=== PATIENT | male | born 1975 | race American Indian/Alaskan Native ===

== ENCOUNTER 2016-09-03 09:41 | Outpatient (CLI) | payer MEDICAID ==
--- NOTE | 2016-09-03 10:39 | Ultrasound Report ---
ULTRASOUND RENAL INDICATION: Microhematuria. COMPARISON: None similar at this institution. FINDINGS: Renal sonography suggests top normal renal cortical echogenicity, not as evident on the right due to imaged hepatic possible echogenic coarsening. Grossly preserved renal contours. No hydronephrosis. Few tiny non-shadowing nonspecific echogenicities bilaterally. RIGHT KIDNEY measures 11.1 x 5.6 x 5.3 cm with cortical thickness of 1.5 cm. LEFT KIDNEY estimated at 11.3 x 5.8 x 6.6 cm with cortical thickness of 1.8 cm. URINARY BLADDER suboptimally distended and assessed, though grossly unremarkable in so far seen. CONCLUSION: No acute renal sonographic abnormality with few other incidental findings, as described. Thank you for the opportunity to participate in this patient's care.
== END 2016-09-03 09:42 | disposition home or self-care (01) ==
LOC: US 09:41
PROVIDERS: ATTEND Internal Medicine
DX: R31.29 Other microscopic hematuria (principal)
CPT/HCPCS: 76770

== ENCOUNTER 2017-05-24 09:13 | Outpatient (CLI) | payer MEDICAID ==
[2017-05-24 09:48] LABS: Hematocrit 46.2 % (35.5-45.6); Hemoglobin 15.9 gm/dl (11.8-15.2); Mean Corpuscular HGB Conc 34 % (32-34); Mean Corpuscular Hemoglobin 32 pg (28-32); Mean Corpuscular Volume 93 fl (84-94); Red Blood Count 4.96 M/mm3 (3.65-5.03); Red Cell Distribution Width 13.9 % (13.2-15.2)
[2017-05-24 09:56] LABS: Platelet Count 278 K/mm3 (140-440)
[2017-05-24 10:09] LABS: Alanine Aminotransferase 24 units/L (7-56); Albumin/Globulin Ratio 1.3 %; Alkaline Phosphatase 88 units/L (35-129); Anion Gap 16 mmol/L; BUN/Creatinine Ratio 9; Blood Urea Nitrogen 10 mg/dL (9-20); Calcium 8.7 mg/dL (8.4-10.2); Carbon Dioxide 23 mmol/L (22-30); Cholesterol 171 mg/dL (50-199); Glucose 87 mg/dL (75-100); HDL Cholesterol 38 mg/dL (40-59); LDL Cholesterol,Direct 81 mg/dL (50-130); Potassium 4.8 mmol/L (3.6-5.0); Sodium 137 mmol/L (137-145); Total Protein 7.2 g/dL (6.3-8.2); Triglycerides 262 mg/dL (2-149)
--- NOTE | 2017-05-24 11:32 | Cat Scan Report ---
CT scan of chest with IV contrast: History: COPD. Findings: No endobronchial or mediastinal mass. No mediastinal, hilar or axillary adenopathy. No pleural pericardial effusion. Tiny 2 mm noncalcified nodule right upper lobe series 3 image 35. Tiny 2 mm subpleural nodule series 2 image 72 right lung. 4 mm noncalcified nodule left lung lower lobe series 3 image 92. Pleural-based 2 mm nodule left lung series 3 image 66. No definite evidence of emphysema or consolidation. Impression: Less than 6 mm nodules right and left lung. Annual followup with chest radiograph is recommended.
== END 2017-05-24 09:14 | disposition home or self-care (01) ==
LOC: CT 09:13
PROVIDERS: ATTEND Internal Medicine
DX: J44.9 Chronic obstructive pulmonary disease, unspecified (principal); J98.4 Other disorders of lung; R91.8 Other nonspecific abnormal finding of lung field
CPT/HCPCS: 36415; 71260; 80053; 80061; 82785; 84436; 84443; 85027; Q9967

== ENCOUNTER 2017-05-30 11:27 | Outpatient (CLI) | payer MEDICAID | END 2017-05-30 11:28 | disposition home or self-care (01) | LOC: LAB 11:27 | PROVIDERS: ATTEND Internal Medicine | DX: J44.9 Chronic obstructive pulmonary disease, unspecified (principal); J98.4 Other disorders of lung; L13.9 Bullous disorder, unspecified | CPT/HCPCS: 36415; 82785 ==

== ENCOUNTER 2017-10-04 10:18 | Outpatient (CLI) | payer MEDICAID ==
--- NOTE | 2017-10-04 11:26 | XRay Report ---
LEFT HIP, 2 views: History: Persistent left hip pain. The bony architecture is intact without evidence of fracture or dislocation. No significant soft tissue abnormality is seen. IMPRESSION: Normal left hip.
== END 2017-10-04 10:19 | disposition home or self-care (01) ==
LOC: XRAY 10:18
PROVIDERS: ATTEND Internal Medicine
DX: M25.552 Pain in left hip (principal)